=== PATIENT | male | born 2000 | race Caucasian/White ===

== ENCOUNTER 2023-12-28 10:08 | Emergency (ER) | payer SELFPAY ==
[~2023-12-28] VITALS: Ht 172.7 cm; Wt 66.0 kg
[2023-12-28 10:12] VITALS: TEMP 98.6; O2SAT 89
[2023-12-28] MEDS ORDERED: NALO4SPR BOTHNSTRLS (10:29)
[2023-12-28 10:37] LABS: BASOPHILS % 0.3 % (0.0-2.0); EOSINOPHILS % 0.9 % (0.0-5.0); HEMATOCRIT. 41.8 % (42.0-52.0); HEMOGLOBIN. 14.1 g/dL (14.0-18.0); LYMPHOCYTES % 33.5 % (20.0-50.0); MEAN CORPUSCULAR HEMOGLOBIN 29.4 pg (28.0-32.0); MEAN CORPUSCULAR HGB CONC 33.7 g/dL (31.0-37.0); MEAN CORPUSCULAR VOLUME 87.1 fL (80.0-94.0); MEAN PLATELET VOLUME 7.8 fl (7.4-10.4); MONOCYTES % 7.7 % (2.0-8.0); NEUTROPHILS % 57.6 % (40.0-76.0); PLATELET 256 x1000/uL (130-400); RED CELL DISTRIBUTION WIDTH 13.4 % (11.6-14.6)
[2023-12-28] MEDS: ONDANSETRON HCL 4MG/2ML INJ IV STA (10:45)
[2023-12-28 10:47] LABS: INR 1.1
[2023-12-28] MEDS: SODIUM CHLORIDE 0.9% 1,000 ML IV ONE (10:49)
[2023-12-28 10:56] LABS: CHLORIDE 104 mEq/L (98-107); POTASSIUM 3.7 mEq/L (3.5-5.1); SODIUM 139 mEq/L (136-145)
[2023-12-28 10:57] LABS: CALCIUM 8.8 mg/dL (8.7-10.4); CARBON DIOXIDE 26 mEq/L (21-32)
[2023-12-28 11:02] LABS: CREATININE 1.1 mg/dL (0.6-1.3); GLUCOSE 209 mg/dL (70-105); UREA NITROGEN BLOOD 8 mg/dL (9-23)
[2023-12-28 13:00] VITALS: BP 117/80; PULSE 105; RESP 19
[2023-12-28 13:01] LABS: CLARITY URINE TURBID (CLEAR); COLOR URINE YELLOW (YELLOW); GLUCOSE URINE TRACE (NEGATIVE); KETONES URINE NEGATIVE (NEGATIVE); LEUKOCYTE ESTERASE URINE NEGATIVE (NEGATIVE); NITRITE URINE NEGATIVE (NEGATIVE); OCCULT BLOOD URINE NEGATIVE (NEGATIVE); PROTEIN URINE NEGATIVE (NEGATIVE); SPECIFIC GRAVITY URINE 1.009 (1.005-1.030); UROBILINOGEN URINE 0.2 E.U./dL (0.2-1.0)
[2023-12-28 13:40] LABS: AMORPHOUS SEDIMENT URINE 2+ /lpf; SQUAMOUS EPITHELIAL CELL URINE RARE /lpf (RARE/1+)
[2023-12-28 13:41] LABS: BACTERIA URINE 2+
[2023-12-28 13:42] LABS: RBC URINE NONE SEEN /hpf (0-2); WBC URINE 0-2 /hpf (0-2)
== END 2023-12-28 14:14 | disposition home or self-care (01) ==
LOC: ER 10:08
DX: T40.601A Poisoning by unspecified narcotics, accidental (unintentional), initial encounter (principal); Y92.89 Other specified places as the place of occurrence of the external cause
CPT/HCPCS: 80048; 81003; 85025; 85610; 36415; 71045; 96361; 96374; 99284; J2405; J7030; Z7610 ×3